=== PATIENT | male | born 1950 | race Caucasian/White ===

== ENCOUNTER 2022-04-10 12:37 | Observation (INO) | payer MEDICARE ==
[~2022-04-10] VITALS: Ht 188 cm; Wt 93.4 kg
[2022-04-10 13:16] LABS: BASOPHILS % (AUTO) 0.6 % (0.0-5.0); EOSINOPHILS % (AUTO) 1.1 % (0.0-8.0); HEMATOCRIT 47.6 % (42-54); LYMPHOCYTES % (AUTO) 17.9 % (21.0-51.0); MEAN CORPUSCULAR HEMOGLOBIN 32.6 pg (27.0-33.0); MEAN CORPUSCULAR HGB CONC 34.5 g/dL (32.0-36.0); MEAN CORPUSCULAR VOLUME 94.6 fL (79-99); NEUTROPHILS % (AUTO) 74.9 % (40.0-77.0); PLATELET COUNT (AUTO) 194 K/uL (130-400); RED BLOOD CELL COUNT(AUTO) 5.03 MIL/uL (4.50-6.20); RED CELL DISTRIBUTION WIDTH 13.7 % (11.0-15.5); WHITE BLOOD COUNT (AUTO) 13.3 K/uL (4.8-10.8)
[2022-04-10] MEDS ORDERED: ACETAMINOPHEN WITH CODEINE 1 TAB TAB PO ONE (13:30)
[2022-04-10] MEDS ORDERED: CEPHALEXIN 500 MG CAPSULE PO ONE (13:30)
[2022-04-10 13:31] LABS: ALBUMIN 3.9 g/dL (3.5-5.0); CREATININE 1.1 mg/dL (0.5-1.5); POTASSIUM 4.2 mmol/L (3.5-5.1); TOTAL PROTEIN, SERUM 7.4 g/dL (6.0-8.3)
[2022-04-10] MEDS ORDERED: MORPHINE 2 MG SYG IVP PRN (16:30)
[2022-04-10] MEDS ORDERED: LEVOFLOXACIN 500 MG/D5W 100 ML 100 ML IV SCH (16:30)
[2022-04-10] MEDS ORDERED: ACETAMINOPHEN WITH CODEINE 1 TAB TAB PO PRN (16:30)
[2022-04-10 16:36] VITALS: BP 134/70
[2022-04-10] MEDS: LACTATED RINGERS 1000ML 1,000 ML IV SCH (17:56)
[2022-04-10] MEDS: FAMOTIDINE 20MG TAB PO SCH (19:45)
[2022-04-10 20:00] VITALS: BP 134/88
[2022-04-10 21:28] LABS: APPEARANCE,URINE CLEAR (CLEAR); BILIRUBIN,URINE NEGATIVE (NEGATIVE); COLOR,URINE YELLOW (YELLOW); GLUCOSE, URINE (UA) NEGATIVE (NEGATIVE); KETONES,URINE NEGATIVE (NEGATIVE); LEUKOCYTE ESTERASE ,URINE NEGATIVE (NEGATIVE); NITRATE,URINE NEGATIVE (NEGATIVE); OCCULT BLOOD,URINE NEGATIVE (NEGATIVE); PROTEIN,URINE NEGATIVE (NEGATIVE); UROBILINOGEN,URINE 0.2 mg/dL (0.2-1.0)
[2022-04-11] VITALS: BP 100/69
[2022-04-11 04:00] VITALS: BP 120/74
[2022-04-11] MEDS: LACTATED RINGERS 1000ML 1,000 ML IV SCH (05:26)
[2022-04-11 08:03] VITALS: BP 145/89
[2022-04-11] MEDS ORDERED: CEPHALEXIN 500 MG CAPSULE PO SCH (08:30)
[2022-04-11] MEDS: FAMOTIDINE 20MG TAB PO SCH (09:00)
[2022-04-11] MEDS ORDERED: ENOXAPARIN SODIUM 40 MG/0.4 ML SYRINGE SQ SCH (09:00)
[2022-04-11] MEDS ORDERED: CEPH500B PO (09:09)
[2022-04-11 11:12] VITALS: BP 123/72
== END 2022-04-11 11:23 | disposition home or self-care (01) ==
LOC: EDH 12:37 → EDHIP 14:57 → 4BH 15:57
PROVIDERS: ADMIT Hospitalist; ATTEND Hospitalist
DX: T22.232A Burn of second degree of left upper arm, initial encounter (principal); Z20.822 Contact with and (suspected) exposure to COVID-19; T20.20XA Burn of second degree of head, face, and neck, unspecified site, initial encounter; T22.242A Burn of second degree of left axilla, initial encounter; T20.17XA Burn of first degree of neck, initial encounter; T59.811A Toxic effect of smoke, accidental (unintentional), initial encounter; F17.200 Nicotine dependence, unspecified, uncomplicated; Z96.651 Presence of right artificial knee joint; Z79.899 Other long term (current) drug therapy
CPT/HCPCS: 96365; 99284; 82550; 84484; 80053; 85025; 81003; 36415; 87635; 71045; 96361; G0378 ×20; C9803; J7120 ×2; J1956

== ENCOUNTER → 2022-04-17 | Outpatient (CLI) | payer MEDICARE ==
[~2022-04-17] MED LIST: CEPH500B PO; LIDOCAINE HCL 4% LTA SOL 4 ML VIAL TP ONE
== END | disposition home or self-care (01) ==
LOC: WHH 13:20
PROVIDERS: ATTEND Family Medicine
DX: T22.232A Burn of second degree of left upper arm, initial encounter (principal); T22.212A Burn of second degree of left forearm, initial encounter; F17.290 Nicotine dependence, other tobacco product, uncomplicated; Z79.899 Other long term (current) drug therapy; Z96.651 Presence of right artificial knee joint; W40.1XXA Explosion of explosive gases, initial encounter; Y93.89 Activity, other specified; Y92.89 Other specified places as the place of occurrence of the external cause; Y99.8 Other external cause status
CPT/HCPCS: 16020; A4450